=== PATIENT | female | born 1955 | race Caucasian/White ===

== ENCOUNTER → 2016-08-11 | Outpatient (CLI) | payer OTHER ==
[~2016-08-11] MED LIST: NO HOME MEDICATIONS; PROTONIX TR40 MG PO
== END ==
LOC: MC.RAD 16:20
DX: Z12.31 Encounter for screening mammogram for malignant neoplasm of breast (principal); Z80.3 Family history of malignant neoplasm of breast

== ENCOUNTER → 2018-03-02 | Outpatient (CLI) | payer OTHER | LOC: MC.RAD 14:35 | DX: Z12.31 Encounter for screening mammogram for malignant neoplasm of breast (principal) ==

== ENCOUNTER → 2019-04-04 | Outpatient (CLI) | payer BC | LOC: MC.RAD 09:30 | DX: Z12.31 Encounter for screening mammogram for malignant neoplasm of breast (principal) ==

== ENCOUNTER → 2020-04-12 | Outpatient (CLI) | payer BC | LOC: MC.RAD 10:04 | DX: Z12.31 Encounter for screening mammogram for malignant neoplasm of breast (principal) ==

== ENCOUNTER 2020-11-18 16:30 | Outpatient (RCR) | payer BC | END 2020-11-19 08:59 | disposition home or self-care (01) | LOC: PT.GENESIS 16:30 | DX: M75.81 Other shoulder lesions, right shoulder (principal) ==

== ENCOUNTER → 2021-05-06 | Outpatient (CLI) | payer OTHER | LOC: MC.RAD 09:34 | DX: Z12.31 Encounter for screening mammogram for malignant neoplasm of breast (principal) ==

== ENCOUNTER → 2022-06-24 | Outpatient (CLI) | payer MEDICARE | LOC: MC.RAD 08:22 | DX: R92.0 Mammographic microcalcification found on diagnostic imaging of breast (principal) ==